=== PATIENT | female | born 1985 | race Caucasian/White ===

== ENCOUNTER 2021-03-28 06:53 | Emergency (ER) | payer MEDICAID ==
[~2021-03-28] VITALS: Ht 167.6 cm; Wt 104.5 kg
--- NOTE | 2021-03-28 09:29 | NUR ---
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
[2021-03-28] MEDS ORDERED: apixaban 5mg tablet PO ONE (09:45)
[2021-03-28] MEDS ORDERED: APIX5TAB3 PO (09:59)
[2021-03-28 10:51] LABS: ALANINE AMINOTRANSFERASE 24 U/L (12-78); ALBUMIN 3.7 G/DL (3.4-5.0); ALBUMIN/GLOBULIN RATIO 1.2 (1.1-1.5); ALKALINE PHOSPHATASE 42 IU/L (46-116); ANION GAP 9 (8-16); ASPARTATE AMINO TRANSFERASE 12 U/L (10-37); BILIRUBIN,TOTAL 0.6 MG/DL (0.1-1.0); BLOOD UREA NITROGEN 11 MG/DL (7-18); BUN/CREATININE RATIO 15.9 (6.6-38.0); CALCIUM 8.5 MG/DL (8.5-10.1); CHLORIDE 108 MMOL/L (99-107); CREATININE 0.69 MG/DL (0.40-0.90); GLUCOSE 93 MG/DL (70-104); POTASSIUM 3.8 MMOL/L (3.5-5.1); SODIUM 144 MMOL/L (135-145); TOTAL CARBON DIOXIDE 27.3 MMOL/L (24-32); TOTAL PROTEIN 6.9 G/DL (6.4-8.2); eGFR > 90 ML/MIN
[2021-03-28 10:59] LABS: BASOPHILS % (AUTO) 0.6 % (0-1); EOSINOPHILS # (AUTO) 0.1 X10'3 (0-0.9); EOSINOPHILS % (AUTO) 1.3 % (0-6); HEMATOCRIT 41.5 % (35.0-45.0); HEMOGLOBIN 14.8 g/dl (12.0-16.0); LYMPHOCYTES # (AUTO) 2.2 X10'3 (1.1-4.8); LYMPHOCYTES % (AUTO) 28.5 % (21-51); MEAN CORPUSCULAR HEMOGLOBIN 32.6 PG (27.0-31.0); MEAN CORPUSCULAR HGB CONC 35.6 g/dL (33.0-36.5); MEAN CORPUSCULAR VOLUME 91.6 FL (78-98); MONOCYTES # (AUTO) 0.4 X10'3 (0-0.9); MONOCYTES % (AUTO) 5.5 % (2-12); NEUTROPHILS # (AUTO) 4.9 X10'3 (1.8-7.7); NEUTROPHILS % (AUTO) 64.1 % (42-75); PLATELET COUNT 208 X10'3 (140-440); RED BLOOD COUNT 4.53 X10'6 (4.20-5.60); RED CELL DISTRIBUTION WIDTH 12.8 % (11.5-14.5); WHITE BLOOD COUNT 7.6 X10'3 (4.5-11.0)
[2021-03-28 11:32] VITALS: BP 148/70
== END 2021-03-28 11:38 | disposition home or self-care (01) ==
LOC: ER 06:54
DX: I82.462 Acute embolism and thrombosis of left calf muscular vein (principal); R01.1 Cardiac murmur, unspecified; M79.662 Pain in left lower leg; I74.9 Embolism and thrombosis of unspecified artery; Z79.899 Other long term (current) drug therapy
CPT/HCPCS: 80053; 85025; 93005; 93970; 99285

== ENCOUNTER 2021-05-06 09:06 | Emergency (ER) | payer MEDICAID ==
[~2021-05-06] VITALS: Ht 167.6 cm; Wt 104.5 kg
[~2021-05-06 09:06] MED LIST: APIX5TAB3 PO
[2021-05-06 09:56] VITALS: BP 143/85
[2021-05-06] MEDS ORDERED: APIX5TAB3 PO (12:23)
[2021-05-06] MEDS ORDERED: apixaban 5mg tablet PO ONE (12:25)
[2021-05-06] MEDS ORDERED: apixaban 5mg tablet PO SCH (12:25)
== END 2021-05-06 12:50 | disposition home or self-care (01) ==
LOC: ER 09:06
DX: I82.492 Acute embolism and thrombosis of other specified deep vein of left lower extremity (principal); Z79.899 Other long term (current) drug therapy
CPT/HCPCS: 93971; 99284

== ENCOUNTER 2021-08-27 13:24 | Emergency (ER) | payer MEDICAID ==
[~2021-08-27] VITALS: Ht 167.6 cm; Wt 111.4 kg
--- NOTE | 2021-08-27 14:52 | NUR ---
VAS AT BEDSIDE
[2021-08-27] MEDS ORDERED: APIX5TAB3 PO (15:26)
[2021-08-27 15:29] VITALS: BP 146/94
== END 2021-08-27 15:39 | disposition home or self-care (01) ==
LOC: ER 13:25
DX: R60.0 Localized edema (principal); I80.9 Phlebitis and thrombophlebitis of unspecified site; Z79.01 Long term (current) use of anticoagulants
CPT/HCPCS: 93971; 99283; 99284